=== PATIENT | female | born 1980 | race American Indian/Alaskan Native ===

== ENCOUNTER 2022-11-06 11:36 | Emergency (ER) | payer MEDICAID ==
[2022-11-06] MEDS ORDERED: Erythromycin Base 0.5% Ophth Oint 1 GM Tube EYELF ONE (12:07)
== END 2022-11-06 12:23 | disposition home or self-care (01) ==
LOC: JP.ED 11:36
DX: B30.9 Viral conjunctivitis, unspecified (principal); H01.114 Allergic dermatitis of left upper eyelid; H01.115 Allergic dermatitis of left lower eyelid; F17.210 Nicotine dependence, cigarettes, uncomplicated; Z88.8 Allergy status to other drugs, medicaments and biological substances
CPT/HCPCS: 99283; A9270

== ENCOUNTER 2023-03-29 21:09 | Emergency (ER) | payer MEDICAID | END 2023-03-29 22:33 | disposition home or self-care (01) | LOC: JP.ED 21:09 | DX: S60.412A Abrasion of right middle finger, initial encounter (principal); L08.9 Local infection of the skin and subcutaneous tissue, unspecified; F17.210 Nicotine dependence, cigarettes, uncomplicated; Z88.8 Allergy status to other drugs, medicaments and biological substances | CPT/HCPCS: 73120-26-RT; 73120-RT; 99283 ==

== ENCOUNTER 2023-08-02 07:07 | Emergency (ER) | payer MEDICAID ==
[2023-08-02 07:42] LABS: AMPHETAMINES SCREEN, URINE NEGATIVE (NEGATIVE); METHAMPHETAMINES SCREEN, URINE PRESUMPTIVE POSITIVE (NEGATIVE)
[2023-08-02 07:43] LABS: BARBITURATE SCREEN,URINE NEGATIVE (NEGATIVE); BENZODIAZEPINES SCREEN,URINE NEGATIVE (NEGATIVE); METHADONE SCREEN, URINE NEGATIVE (NEGATIVE); OXYCODONE SCREEN,URINE NEGATIVE (NEGATIVE); PROPOXYPHENE SCREEN,URINE NEGATIVE (NEGATIVE); THC SCREEN,URINE 50 NG/ML PRESUMPTIVE POSITIVE (NEGATIVE)
[2023-08-02 07:44] LABS: AMORPHOUS SEDIMENT,URINE FEW; BACTERIA,URINE FEW; BASOPHILS ABSOLUTE AUTO 0.05 K/uL (0.00-0.10); BASOPHILS PERCENT AUTO 0.3 % (0.1-1.3); BILIRUBIN,URINE NEGATIVE (NEGATIVE); COLOR,URINE YELLOW (YELLOW); EOSINOPHILS ABSOLUTE AUTO 0.04 K/uL (0.00-0.40); EOSINOPHILS PERCENT AUTO 0.2 % (0.0-5.4); EPITHELIAL CELLS,URINE NOT SEEN; GLUCOSE,URINE NEGATIVE (NEGATIVE); HEMATOCRIT 38.1 % (34.3-46.0); HEMOGLOBIN 12.7 g/dL (11.2-15.5); IMMATURE GRAN ABSOLUTE AUTO 0.12 K/uL (0.00-0.23); IMMATURE GRAN PERCENT AUTO 0.6 % (0.0-0.7); KETONES,URINE NEGATIVE (NEGATIVE); LEUKOCYTE ESTERASE,URINE NEGATIVE (NEGATIVE); LYMPHOCYTES ABSOLUTE AUTO 1.44 K/uL (0.8-3.3); LYMPHOCYTES PERCENT AUTO 7.3 % (11.4-47.7); MEAN CORPUSCULAR HEMOGLOBIN 30.6 pg (31.6-35.5); MEAN CORPUSCULAR HGB CONC 33.3 g/dL (31.6-35.5); MEAN CORPUSCULAR VOLUME 91.8 fL (81.4-99.0); MONOCYTES ABSOLUTE AUTO 0.67 K/uL (0.20-0.90); MONOCYTES PERCENT AUTO 3.4 % (3.3-12.6); MUCUS,URINE NOT SEEN; NEUTROPHILS ABSOLUTE AUTO 17.42 K/uL (1.0-7.6); NEUTROPHILS PERCENT AUTO 88.2 % (40.0-78.1); NITRITE,URINE NEGATIVE (NEGATIVE); OCCULT BLOOD,URINE LARGE (NEGATIVE); PH,URINE 7.5 (5.0-8.0); PLATELET COUNT,PLT 375 K/uL (130-375); PROTEIN,URINE TRACE mg/dL (NEGATIVE); RBC,URINE 0-5 (0-5); RED BLOOD CELL COUNT 4.15 M/uL (3.77-5.24); UROBILINOGEN,URINE 0.2 EU/dL (0.2-1.0); WHITE BLOOD CELL COUNT,WBC 19.7 K/uL (3.2-11.0)
[2023-08-02 07:45] LABS: ANION GAP 20.4 mmol/L (5.0-14.0); BLOOD UREA NITROGEN,BUN 10 mg/dL (7-18); CALCIUM 8.1 mg/dL (8.5-10.1); CARBON DIOXIDE,CO2 20 mmol/L (21-32); CHLORIDE,CL 106 mmol/L (100-108); CREATININE 0.8 mg/dL (0.6-1.0); ESTIMATED GFR 95 mL/min (>60); GLUCOSE RANDOM 112 mg/dL (74-106); POTASSIUM,K 3.4 mmol/L (3.6-5.2); SODIUM,NA 143 mmol/L (140-148)
[2023-08-02 10:13] LABS: APPEARANCE,URINE SLIGHTLY CLOUDY (CLEAR)
== END 2023-08-02 08:08 | disposition home or self-care (01) ==
LOC: JP.ED 07:07
DX: T43.651A Poisoning by methamphetamines accidental (unintentional), initial encounter (principal); F15.129 Other stimulant abuse with intoxication, unspecified; Z88.8 Allergy status to other drugs, medicaments and biological substances
CPT/HCPCS: 36415; 80048; 80143; 80305-QW; 80307; 81001; 85025; 99284

== ENCOUNTER 2024-06-30 18:20 | Emergency (ER) | payer MEDICAID | END 2024-06-30 19:23 | disposition left against medical advice (07) | LOC: JP.ED 18:20 | DX: Z53.21 Procedure and treatment not carried out due to patient leaving prior to being seen by health care provider (principal) ==